=== PATIENT | female | born 1980 | race Native Hawaiian/Other Pacific Islander ===

== ENCOUNTER 2016-08-21 18:24 | Emergency (ER) | payer OTHER ==
[2016-08-21] MEDS ORDERED: IBUPROFEN 800 MG TABLET ONE (20:50)
[2016-08-21] MEDS ORDERED: ACETAMINOPHEN 500 MG TABLET ONE (20:50)
== END 2016-08-21 20:59 | disposition home or self-care (01) ==
LOC: ED 18:24
DX: M54.9 Dorsalgia, unspecified (principal); R51 Headache; M54.2 Cervicalgia; V43.52XA Car driver injured in collision with other type car in traffic accident, initial encounter; Y92.410 Unspecified street and highway as the place of occurrence of the external cause
CPT/HCPCS: 99283 ×2; A9270 ×2